=== PATIENT | female | born 1945 | race Caucasian/White ===

== ENCOUNTER 2018-02-07 01:38 | Emergency (ER) | payer MEDICARE, BC ==
[2018-02-07] MEDS ORDERED: Racepinephrine 2.25% 0.5 ML Neb Soln NEB ONE (02:04)
[2018-02-07 03:09] VITALS: BP 124/82
--- NOTE | 2018-02-07 04:47 | ER ---
DATE SEEN: 02/07/2018 CHIEF COMPLAINT: Foreign body in the throat. HISTORY OF PRESENT ILLNESS: Lisa is a 72-year-old female who states that she feels something got stuck in her throat. She took a pill of Flexeril around midnight and felt that it choked her, and since that time, she has tried to vomit. She has tried to swallow lots of water, but still feels something painful and stuck in the throat. It has also caused her voice to be hoarse. She denies any difficulty breathing or chest pain. PAST MEDICAL HISTORY: Hypertension and hyperlipidemia. ALLERGIES: No known allergies. SOCIAL HISTORY: Quit smoking years ago. REVIEW OF SYSTEMS: All other systems were noncontributory. PHYSICAL EXAMINATION: VITAL SIGNS: Her blood pressure is normal, her pulse is 116, oxygenation is 100% on room air, and respiratory rate is 15. EARS, NOSE, AND THROAT: Negative. HEAD: Normal size. NECK: Supple. CARDIOVASCULAR: Normal. RESPIRATORY SYSTEM: Mild stridor. CT of neck did not show any radiopaque foreign bodies in the trachea, but there was a mass noted in the right medial lung suggestive of malignancy. IMPRESSION: 1. Possible aspiration pneumonitis. 2. Lung mass. PLAN: I gave her racemic epinephrine. She was discharged home after explanation of her symptoms and the findings of the CT scan. I advised her to see her PCP this morning, Cierra Lerma, to discuss an urgent referral to Pulmonology for bronchoscopy, biopsy. She should return to the ED with any worsening symptoms. /[id number] TAMIKA/BHAVNA
== END 2018-02-07 03:05 | disposition home or self-care (01) ==
LOC: FB.ED 01:38
DX: R91.8 Other nonspecific abnormal finding of lung field (principal); I10 Essential (primary) hypertension; Z87.891 Personal history of nicotine dependence
CPT/HCPCS: 70490; 94640; 99283

== ENCOUNTER 2018-08-19 13:36 | Emergency (ER) | payer MEDICARE, BC ==
[2018-08-19] MEDS ORDERED: Sodium Chloride 0.9% 1,000 ML IV ONE (13:47)
--- NOTE | 2018-08-19 14:58 | EDM.PDOC ---
ED HPI GENERAL MEDICAL PROBLEM - General Chief Complaint: Gastrointestinal Problem Stated Complaint: WEAKNESS Time Seen by Provider: 08/19/18 13:36 Source of Information: Reports: Patient, EMS, Family History Limitations: Reports: Physical Impairment - History of Present Illness INITIAL COMMENTS - FREE TEXT/NARRATIVE: 73 y.o.w.f with diabetes insipidus, had N/V/D in the past few days, fell at home , could not get up, 911 was called, BP was 60/40, NS was given, BP improved here in the ed after 2 liters of NS to 134/80. pulse 125. Pulse ox on 3 liters O2 98% (by NC). While doing well, pt's BP dropped suddenly to 64/45 again with a rate of 134, Pt was lethrgig. 3rd NS was started and so was Levophed while Abx , Levoquine and Zosyn were ordered[facility]. Onset Date: 08/19/18 Onset Time: 10:00 Duration: Hour(s):, Getting Worse Location: Reports: Generalized Quality: Reports: Dull Severity: Moderate Improves with: Reports: None Worsens with: Reports: None Context: Reports: Other (fall) Associated Symptoms: Reports: Diaphoresis, Malaise, Nausea/Vomiting, Syncope, Weakness - Related Data Allergies Allergy/AdvReac Type Severity Reaction Status Date / Time No Known Allergies Allergy Verified 08/19/18 22:33 Home Meds: Home Meds Simvastatin [Zocor] 20 mg PO BEDTIME 11/22/13 [History] Desmopressin Acetate 0.2 mg PO DAILY 08/19/18 [History] Lisinopril 5 mg PO DAILY 08/19/18 [History] predniSONE [Prednisone] 2.5 mg PO DAILY 08/19/18 [History] predniSONE [Prednisone] 5 mg PO 09 08/19/18 [History] Past Medical History HEENT History: Reports: Impaired Vision Cardiovascular History: Reports: High Cholesterol, Hypertension COMMUNICATION ENGINEER History: Reports: - Past Surgical History Other Musculoskeletal Surgeries/Procedures:: Back surgery Social & Family History - Family History Family Medical History: Noncontributory - Caffeine Use Caffeine Use: Reports: Coffee, Soda, Tea ED ROS GENERAL - Review of Systems Review Of Systems: See Below Constitutional: Reports: Weakness, Fatigue HEENT: Reports: No Symptoms Respiratory: Reports: No Symptoms Cardiovascular: Reports: Blood Pressure Problem, Lightheadedness, Orthopnea, Palpitations Endocrine: Reports: No Symptoms GI/Abdominal: Reports: No Symptoms : Reports: No Symptoms Musculoskeletal: Reports: No Symptoms Skin: Reports: No Symptoms Neurological: Reports: Weakness Psychiatric: Reports: No Symptoms Hematologic/Lymphatic: Reports: No Symptoms Immunologic: Reports: No Symptoms ED EXAM, GENERAL - Physical Exam Exam: See Below Exam Limited By: Physical Impairment General Appearance: Alert, Moderate Distress, Obese Eye Exam: Bilateral Eye: Normal Inspection Ears: Normal External Exam Ear Exam: Bilateral Ear: Auricle Normal Nose: Normal Inspection, Normal Mucosa, No Blood Throat/Mouth: Normal Inspection, Normal Lips, Normal Voice, No Airway Compromise Head: Atraumatic, Normocephalic Neck: Normal Inspection, Supple, Non-Tender, Full Range of Motion Respiratory/Chest: No Respiratory Distress, Lungs Clear, Normal Breath Sounds, Chest Non-Tender Cardiovascular: Normal Peripheral Pulses, Tachycardia Peripheral Pulses: 2+: Carotid (R) GI/Abdominal: Normal Bowel Sounds, Soft, Non-Tender, No Organomegaly, No Abnormal Bruit, No Mass, Pelvis Stable (Female) Exam: Deferred Rectal (Female) Exam: Deferred Back Exam: Normal Inspection Extremities: Normal Inspection, Normal Range of Motion, Non-Tender, No Pedal Edema, Normal Capillary Refill Neurological: Alert, Oriented, CN II-XII Intact, Normal Cognition, No Motor/ Sensory Deficits Psychiatric: Normal Affect, Normal Mood Skin Exam: Warm, Dry, Intact, Normal Color Lymphatic: No Adenopathy EKG INTERPRETATION EKG Date: 08/19/18 Time: 13:45 Rhythm: NSR Rate (Beats/Min): 125 (Sinus Tachycardia) [place]: Normal P-Wave: Present QRS: Normal ST-T: Normal QT: Normal Comparison: NA - No Prior EKG Course - Vital Signs Text/Narrative:: 73 y.o.w.f with diabetes insipidus, had N/V/D in the past few days, fell at home , could not get up, 911 was called, BP was 60/40, NS was given, BP improved here in the ed after 2 liters of NS to 134/80. pulse 125. Pulse ox on 3 liters O2 98% (by NC). While doing well, pt's BP dropped suddenly to 64/45 again with a rate of 134, Pt was lethargic. 3rd NS was started and so was Levophed while Abx, Levoquine and Zosyn were ordered. [facility] Hospitalist and cotton picking machine operator were consulted. PE: 73 y.o.w.f with acute gastroenetritis, hypovolemia with hypotension with Septic shock, acute renal insufficiency, NSTEMI Labs: Troponin 0.113 WBC 15.4 Cr 2.2 GFR 22 CK > 2000 BNP > 1900 Lactic acid was 3.1 UA results are pending Imaging: CXR Resection of right lung due to Lung CA Impression: acute gastroenetritis, hypovolemia with hypotension and Septic shock, acute renal insufficiency, NSTEMI, Fall, dehydration, H/O diabetes insipidus, S/P right pneumonectomy due to lung CA, H/O Tumor behind right eye. Tx: NS. Levophed. Levoquine, Zosyn, Heparin drip. 2.59 pm Consultation: , Hospitalist, [facility]: accepted the pt for transfer and further care, Heparin drip ok 4.02 pm Consultation: Dr. Ko, [employer] Operator: Add Zosyn. 4.39 pm [employer] not available 4.44 pm Transport by EMS, ACLS to [facility] Last Recorded V/S: Last Vital Signs Temp 37.9 C 08/19/18 13:36 Pulse 126 H 08/19/18 13:36 Resp 30 H 08/19/18 13:36 BP 90/39 L 08/19/18 16:34 Pulse Ox 90 L 08/19/18 13:36 - Orders/Labs/Meds Orders: Active Orders 24 hr Category Date Time Status Blood Glucose Check, Bedside [RC] ONETIME Care 08/19/18 16:00 Active CXR [Chest 1V Frontal] [CR] Stat Exams 08/19/18 15:15 Taken CULTURE BLOOD [BC] Urgent Lab 08/19/18 16:00 Results CULTURE BLOOD [BC] Urgent Lab 08/19/18 16:15 Results Blood Culture x2 Reflex Set [OM.PC] Urgent Oth 08/19/18 15:39 Ordered EKG 12 Lead [EK] Routine Ther 08/19/18 13:47 Ordered Labs: Laboratory Tests 08/19/18 08/19/18 08/19/18 Range/Units 14:06 14:06 14:06 WBC 15.1 H (4.5-12.0) X10-3/uL RBC 4.87 (3.23-5.20) x10(6)uL Hgb 14.3 (11.5-15.5) g/dL Hct 43.0 (30.0-51.3) % MCV 88.4 (80-96) fL MCH 29.3 (27.7-33.6) pg MCHC 33.2 (32.2-35.4) g/dL RDW 14.6 (11.5-15.5) % Plt Count 266 (125-369) X10(3)uL MPV 9.8 (7.4-10.4) fL Add Manual Diff Yes Neutrophils % (Manual) 77 (46-82) % Band Neutrophils % 4 (0-6) % Lymphocytes % (Manual) 12 L (13-37) % Monocytes % (Manual) 7 (4-12) % PT 12.2 H (8.7-11.1) INR 1.26 H (0.89-1.13) APTT (24.4-33.2) SECONDS Sodium 142 (135-145) mmol/L Potassium 3.4 L (3.5-5.3) mmol/L Chloride 104 (100-110) mmol/L Carbon Dioxide 22 (21-32) mmol/L BUN 26 H (7-18) mg/dL Creatinine 2.2 H* (0.55-1.02) mg/dL Est Cr Clr Drug Dosing TNP Estimated GFR (MDRD) 22 L (>60) BUN/Creatinine Ratio 11.8 (9-20) Glucose 125 H (80-116) mg/dL POC Glucose (80-116) mg/dL Lactic Acid (0.4-2.2) mmol/L Calcium 8.1 L (8.6-10.2) mg/dL Magnesium (1.8-2.5) mg/dL Creatine Kinase 2068 H* (60-160) IU/L Troponin I (<0.017-0.056) ng/mL NT-Pro-B Natriuret Pep (<=125) pg/mL 08/19/18 08/19/18 08/19/18 Range/Units 14:06 14:06 14:35 WBC (4.5-12.0) X10-3/uL RBC (3.23-5.20) x10(6)uL Hgb (11.5-15.5) g/dL Hct (30.0-51.3) % MCV (80-96) fL MCH (27.7-33.6) pg MCHC (32.2-35.4) g/dL RDW (11.5-15.5) % Plt Count (125-369) X10(3)uL MPV (7.4-10.4) fL Add Manual Diff Neutrophils % (Manual) (46-82) % Band Neutrophils % (0-6) % Lymphocytes % (Manual) (13-37) % Monocytes % (Manual) (4-12) % PT (8.7-11.1) INR (0.89-1.13) APTT 25.6 (24.4-33.2) SECONDS Sodium (135-145) mmol/L Potassium (3.5-5.3) mmol/L Chloride (100-110) mmol/L Carbon Dioxide (21-32) mmol/L BUN (7-18) mg/dL Creatinine (0.55-1.02) mg/dL Est Cr Clr Drug Dosing Estimated GFR (MDRD) (>60) BUN/Creatinine Ratio (9-20) Glucose (80-116) mg/dL POC Glucose (80-116) mg/dL Lactic Acid (0.4-2.2) mmol/L Calcium (8.6-10.2) mg/dL Magnesium 1.9 (1.8-2.5) mg/dL Creatine Kinase (60-160) IU/L Troponin I 0.113 H* (<0.017-0.056) ng/mL NT-Pro-B Natriuret Pep (<=125) pg/mL 08/19/18 08/19/18 08/19/18 Range/Units 15:30 15:30 16:00 WBC (4.5-12.0) X10-3/uL RBC (3.23-5.20) x10(6)uL Hgb (11.5-15.5) g/dL Hct (30.0-51.3) % MCV (80-96) fL MCH (27.7-33.6) pg MCHC (32.2-35.4) g/dL RDW (11.5-15.5) % Plt Count (125-369) X10(3)uL MPV (7.4-10.4) fL Add Manual Diff Neutrophils % (Manual) (46-82) % Band Neutrophils % (0-6) % Lymphocytes % (Manual) (13-37) % Monocytes % (Manual) (4-12) % PT (8.7-11.1) INR (0.89-1.13) APTT (24.4-33.2) SECONDS Sodium (135-145) mmol/L Potassium (3.5-5.3) mmol/L Chloride (100-110) mmol/L Carbon Dioxide (21-32) mmol/L BUN (7-18) mg/dL Creatinine (0.55-1.02) mg/dL Est Cr Clr Drug Dosing Estimated GFR (MDRD) (>60) BUN/Creatinine Ratio (9-20) Glucose (80-116) mg/dL POC Glucose 83 (80-116) mg/dL Lactic Acid 3.1 H (0.4-2.2) mmol/L Calcium (8.6-10.2) mg/dL Magnesium (1.8-2.5) mg/dL Creatine Kinase (60-160) IU/L Troponin I (<0.017-0.056) ng/mL NT-Pro-B Natriuret Pep 1942 H* (<=125) pg/mL Meds: Medications Discontinued Medications Generic Name Dose Route Start Last Admin Trade Name [place] PRN Reason Stop Dose Admin Sodium Chloride 1,000 mls @ 999 mls/hr 08/19/18 13:47 08/19/18 14:20 Normal Saline IV 08/19/18 14:47 999 mls/hr .BOLUS ONE Administration Heparin Sodium/Sodium Chloride 25,000 units in 500 mls @ 20.031 mls/hr 15:15 08/19/18 15:30 Heparin 25,000 Units In 1/2 Ns 500 Ml IV 11.5 units/kg/hr TITRATE TONEY 20.031 mls/hr Administration Protocol 11.5 UNITS/KG/HR Sodium Chloride 1,000 mls @ 125 mls/hr 08/19/18 15:20 08/19/18 15:48 Normal Saline IV 993 mls/hr ASDIRECTED TONEY Infusion Norepinephrine Bitartrate 4 mg 250 mls @ 7.5 mls/hr 08/19/18 15:45 08/19/18 16:33 / Dextrose/Water IV 5 mcg/min TITRATE TONEY 18.75 mls/hr Titration Protocol 2 MCG/MIN Piperacillin Sod/Tazobactam 50 mls @ 100 mls/hr 08/19/18 16:00 08/19/18 16:09 Sod 3.375 gm/ Sodium Chloride IV 08/19/18 16:29 100 mls/hr ONETIME STA Administration Departure - Departure Time of Disposition: 16:54 Disposition: DC/Tfer to Acute Hospital 02 Reason for Transfer *Q: Other (No cotton picking machine operator) Condition: Fair, Poor Clinical Impression: Septic shock Referrals: Cierra Lerma, AUTO BODY MECHANIC APPRENTICE [Primary Care Provider] - Forms: ED Department Discharge - My Orders Last 24 Hours: My Active Orders 08/19/18 13:47 EKG 12 Lead [EK] Routine 08/19/18 15:15 CXR [Chest 1V Frontal] [CR] Stat 08/19/18 15:39 Blood Culture x2 Reflex Set [OM.PC] Urgent 08/19/18 16:00 Blood Glucose Check, Bedside [RC] ONETIME CULTURE BLOOD [BC] Urgent 08/19/18 16:15 CULTURE BLOOD [BC] Urgent - Assessment/Plan Last 24 Hours: My Active Orders 08/19/18 13:47 EKG 12 Lead [EK] Routine 08/19/18 15:15 CXR [Chest 1V Frontal] [CR] Stat 08/19/18 15:39 Blood Culture x2 Reflex Set [OM.PC] Urgent 08/19/18 16:00 Blood Glucose Check, Bedside [RC] ONETIME CULTURE BLOOD [BC] Urgent 08/19/18 16:15 CULTURE BLOOD [BC] Urgent
[2018-08-19] MEDS ORDERED: Heparin Sodium/0.45% NaCl 25,000 UNITS/500 ML BAG IV SCH (15:15)
[2018-08-19] MEDS ORDERED: Sodium Chloride 0.9% 1,000 ML IV SCH (15:20)
[2018-08-19] MEDS ORDERED: Norepinephrine 4 MG in Dextrose 5% in Water 246 ML IV SCH ×2 (15:45)
[2018-08-19] MEDS ORDERED: Piperacillin/Tazobactam 3.375 GM in Sodium Chloride 0.9% 50 ML IV STA (16:00)
[2018-08-19 16:34] VITALS: BP 90/39
--- NOTE | 2018-08-20 08:22 | CR ---
INDICATION: Short of breath. CHEST ONE VIEW: AP upright portable view of the chest was obtained 08/19/18-- no comparisons. The heart did not appear enlarge. A moderate dextroconcave scoliosis is noted at the lower thoracic--upper lumbar spine. The aorta is tortuous with calcification in the arch. Overlying EKG leads noted. Blunting of the right costophrenic angle is noted with some densities in that area raising question of minimal pneumonia and pleuritis. No definite evidence of CHF is seen. Healing fractures noted posteriorly on the right. IMPRESSION: 1. Pleural parenchymal change at the right lung base--costophrenic angle may be on the basis of fibrosis and/or minimal pneumonia or pleuritis--correlate clinically. 2. ASD aorta. 3. Dextroconcave scoliosis lower thoracic spine. MTDD
== END 2018-08-19 16:35 ==
LOC: FB.ED 13:36
DX: A41.9 Sepsis, unspecified organism (principal); R65.21 Severe sepsis with septic shock; I95.9 Hypotension, unspecified; I21.4 Non-ST elevation (NSTEMI) myocardial infarction; E86.1 Hypovolemia; K52.9 Noninfective gastroenteritis and colitis, unspecified; N28.9 Disorder of kidney and ureter, unspecified; I10 Essential (primary) hypertension; Z79.899 Other long term (current) drug therapy; R06.02 Shortness of breath
CPT/HCPCS: 36415; 71045; 80048; 82550; 82962; 83605; 83735; 83880; 84484; 85025; 85610; 85730; 87040; 93005; 96361; 96365; 96368; 99285; J1644; J2543; J7030; J7050; J7060